=== PATIENT | female | born 1995 | race Caucasian/White ===

== ENCOUNTER 2017-11-30 16:50 | Emergency (ER) | payer OTHER ==
[~2017-11-30] VITALS: Ht 160 cm; Wt 104.3 kg
[2017-11-30 16:54] VITALS: TEMP 36.8; Ht 160 cm; Wt 104.3 kg
[2017-11-30] MEDS ORDERED: SODIUM CHLORIDE 0.9% 1000ML 1,000 ML IV STA (17:10)
[2017-11-30 17:54] LABS: BASO % 0.4 %; BASO ABS # 0.04 K/uL (0-0.2); EOS % 1.3 %; EOS ABS # 0.13 K/uL (0-0.5); HEMATOCRIT 41.7 % (37-47); HEMOGLOBIN 14.1 g/dL (12.0-16.0); IG# 0.01 K/uL (0.00-0.02); LYMPH ABS # 2.14 K/uL (1.2-3.4); MEAN CELL VOLUME 83.9 fL (80-100); MEAN CORPUSCULAR HEMOGLOBIN 28.4 pg (25-34); MEAN CORPUSCULAR HGB CONC 33.8 g/dl (32-36); MEAN PLATELET VOLUME 8.7 fL (7.4-10.4); MONO % 6.9 %; MONO ABS # 0.67 K/uL (0.11-0.59); NEUT % 69.3 %; NEUT ABS # 6.73 K/uL (1.4-6.5); PLATELET COUNT 279 K/uL (130-400); RED CELL DISTRIBUTION WIDTH CV 12.9 % (11.5-14.5); RED CELL DISTRIBUTION WIDTH SD 38.8 fL (36.4-46.3); WHITE BLOOD COUNT 9.72 K/uL (4.8-10.8)
[2017-11-30 18:03] LABS: ALBUMIN 4.2 gm/dl (3.4-5.0); ALKALINE PHOSPHATASE 94 U/L (45-117); ALT/SGPT 34 U/L (12-78); AST/SGOT 20 U/L (15-37); BLOOD UREA NITROGEN 11 mg/dl (7-18); CALCIUM 8.9 mg/dl (8.5-10.1); CARBON DIOXIDE 28 mmol/L (21-32); CREATININE 0.73 mg/dl (0.60-1.20); GLUCOSE 99 mg/dl (70-99); LIPASE 111 U/L (73-393); POTASSIUM 3.9 mmol/L (3.5-5.1); SODIUM 139 mmol/L (136-145); TOTAL PROTEIN 8.1 gm/dl (6.4-8.2)
--- NOTE | 2017-11-30 18:57 | DIAGNOSTIC IMAGING REPORT ---
PELVIC ULTRASOUND, TRANSABDOMINAL AND TRANSVAGINAL HISTORY: pelvic bleeding COMPARISON: None. FINDINGS: Uterus: 7.9 x 5.2 x 4.1 cm. No uterine masses. Endometrial stripe: Difficult to define but appears to measure up to 8 mm. Right ovary: Normal in size and demonstrates normal color flow. There are few follicles/cysts. Left ovary: Normal in size and demonstrates normal color flow. There are few follicles/cysts. Dominant cyst measures 2.2 cm. Miscellaneous:No pelvic free fluid. IMPRESSION: No significant abnormality identified within the pelvis. Electronically signed by: Francesco Pedraza M.D. 11/30/2017 6:56 PM Dictated Date/Time: 11/30/2017 6:54 PM
[2017-11-30 19:21] VITALS: BP 126/81; PULSE 83; O2SAT 99
[2017-11-30] MEDS ORDERED: AYG/5 PO (19:43)
[2017-11-30] MEDS ORDERED: NORETHINDRONE ACETATE 5 MG TAB PO SCH (19:45)
--- NOTE | 2017-11-30 22:33 | EMERGENCY ROOM VISIT NOTE ---
History Report prepared by Jayashreeiblanre: Yuli Keenan Under the Supervision of: Eligio MaldonadoO. First contact with patient: 17:04 Chief Complaint: VAGINAL BLEEDING Stated Complaint: ACHING, PERIOD FOR 3 MONTHS History of Present Illness The patient is a 21 year old female who presents to the Emergency Room with complaints of persistent vaginal bleeding for the past 3 weeks. She states some days are more like "spotting" and some days are very heavy like a normal menstrual period. Today the patient has gone through 4 tampons so far. Yesterday , she went through 8 tampons. 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 She is not sexually active and denies any chronic medical problems. She denies any recent injuries or trauma. She states she experienced similar bleeding in the past, and the doctor she saw prescribed Progesterone, which provided temporary relief. She denies any recent dizziness or lightheadedness, headache, change in vision, fevers, chest pain, shortness of breath, nausea, vomiting, diarrhea, pain with urination, and melena. She has experienced some back pain, but states this is normal for her menstrual period. 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 A total of 10 systems reviewed and were otherwise negative. Past Medical & Surgical Medical Problems: (1) No significant past medical history Social History Smoking Status: Never Smoker Alcohol Use: none Drug Use: none Marital Status: single Housing Status: lives with friends Occupation Status: employed Current/Historical Medications Scheduled Norethindrone Acetate (Aygestin), 1 TAB PO QID Allergies Coded Allergies: No Known Allergies (Unverified , 11/30/17) Physical Exam Vital Signs Date Time Temp Pulse Resp B/P (MAP) Pulse Ox O2 Delivery O2 Flow Rate FiO2 11/30/17 19:21 83 16 126/81 99 Room Air 11/30/17 16:54 36.8 94 20 136/76 99 Room Air Physical Exam GENERAL: Sitting up in bed, alert, well appearing, well nourished, no distress, non-toxic EYE EXAM: normal conjunctiva. OROPHARYNX: no exudate, no erythema, lips, buccal mucosa, and tongue normal and mucous membranes are moist NECK: supple, no nuchal rigidity, no adenopathy, non-tender LUNGS: Clear to auscultation. Normal chest wall mechanics HEART: no murmurs, S1 normal and S2 normal ABDOMEN: abdomen soft, non-tender, normo-active bowel sounds, no masses, no rebound or guarding. BACK: Back is symmetrical on inspection and there is no deformity, no midline tenderness, no CVA tenderness. SKIN: no rashes and no bruising UPPER EXTREMITIES: upper extremities are grossly normal. LOWER EXTREMITIES: No pitting edema. : declined NEURO EXAM: Normal sensorium, cranial nerves II-XII grossly intact, normal speech, no gross weakness of arms, no gross weakness of legs. Gross sensation intact. Medical Decision & Procedures ER Provider Diagnostic Interpretation: Radiology results as stated below per my review and the radiologist's interpretation: PELVIC ULTRASOUND, TRANSABDOMINAL AND TRANSVAGINAL HISTORY: pelvic bleeding COMPARISON: None. FINDINGS: Uterus: 7.9 x 5.2 x 4.1 cm. No uterine masses. Endometrial stripe: Difficult to define but appears to measure up to 8 mm. Right ovary: Normal in size and demonstrates normal color flow. There are few follicles/cysts. Left ovary: Normal in size and demonstrates normal color flow. There are few follicles/cysts. Dominant cyst measures 2.2 cm. Miscellaneous:No pelvic free fluid. IMPRESSION: No significant abnormality identified within the pelvis. Electronically signed by: Francesco Pedraza M.D. 11/30/2017 6:56 PM Laboratory Results 11/30/17 17:28 Red Blood Count 4.97, Mean Corpuscular Volume 83.9, Mean Corpuscular Hemoglobin 28.4, Mean Corpuscular Hemoglobin Concent 33.8, Mean Platelet Volume 8.7, Neutrophils (%) (Auto) 69.3, Lymphocytes (%) (Auto) 22.0, Monocytes (%) (Auto) 6.9, Eosinophils (%) (Auto) 1.3, Basophils (%) (Auto) 0.4, Neutrophils # (Auto) 6.73, Lymphocytes # (Auto) 2.14, Monocytes # (Auto) 0.67, Eosinophils # (Auto) 0.13, Basophils # (Auto) 0.04 11/30/17 17:28 Test 11/30/17 17:28 11/30/17 17:45 White Blood Count 9.72 K/uL (4.8-10.8) Red Blood Count 4.97 M/uL (4.2-5.4) Hemoglobin 14.1 g/dL (12.0-16.0) Hematocrit 41.7 % (37-47) Mean Corpuscular Volume 83.9 fL (80-100) Mean Corpuscular Hemoglobin 28.4 pg (25-34) Mean Corpuscular Hemoglobin Concent 33.8 g/dl (32-36) Platelet Count 279 K/uL (130-400) Mean Platelet Volume 8.7 fL (7.4-10.4) Neutrophils (%) (Auto) 69.3 % Lymphocytes (%) (Auto) 22.0 % Monocytes (%) (Auto) 6.9 % Eosinophils (%) (Auto) 1.3 % Basophils (%) (Auto) 0.4 % Neutrophils # (Auto) 6.73 K/uL (1.4-6.5) Lymphocytes # (Auto) 2.14 K/uL (1.2-3.4) Monocytes # (Auto) 0.67 K/uL (0.11-0.59) Eosinophils # (Auto) 0.13 K/uL (0-0.5) Basophils # (Auto) 0.04 K/uL (0-0.2) RDW Standard Deviation 38.8 fL (36.4-46.3) RDW Coefficient of Variation 12.9 % (11.5-14.5) Immature Granulocyte % (Auto) 0.1 % Immature Granulocyte # (Auto) 0.01 K/uL (0.00-0.02) Anion Gap 5.0 mmol/L (3-11) Est Creatinine Clear Calc Drug Dose 142.0 ml/min Estimated GFR () 137.4 Estimated GFR (Non- 118.6 BUN/Creatinine Ratio 14.6 (10-20) Calcium Level 8.9 mg/dl (8.5-10.1) Total Bilirubin 0.2 mg/dl (0.2-1) Direct Bilirubin < 0.1 mg/dl (0-0.2) Aspartate Amino Transf (AST/SGOT) 20 U/L (15-37) Alanine Aminotransferase (ALT/SGPT) 34 U/L (12-78) Alkaline Phosphatase 94 U/L (45-117) Total Protein 8.1 gm/dl (6.4-8.2) Albumin 4.2 gm/dl (3.4-5.0) Lipase 111 U/L (73-393) Urine Color YELLOW Urine Appearance CLEAR (CLEAR) Urine pH 7.0 (4.5-7.5) Urine Specific Snook 1.024 (1.000-1.030) Urine Protein NEG (NEG) Urine Glucose (UA) NEG (NEG) Urine Ketones NEG (NEG) Urine Occult Blood 2+ (NEG) Urine Nitrite NEG (NEG) Urine Bilirubin NEG (NEG) Urine Urobilinogen NEG (NEG) Urine Leukocyte Esterase NEG (NEG) Urine WBC (Auto) 1-5 /hpf (0-5) Urine RBC (Auto) 10-30 /hpf (0-4) Urine Hyaline Casts (Auto) 1-5 /lpf (0-5) Urine Epithelial Cells (Auto) >30 /lpf (0-5) Urine Bacteria (Auto) NEG (NEG) Urine Test NEG (NEG) Laboratory results per my review. Medications Administered Medications (Trade) Dose Ordered Sig/Eladio Route Start Time Stop Time Status Last Admin Dose Admin Sodium Chloride 1,000 ml @ 999 mls/hr Q1H1M STAT IV 11/30/17 17:10 11/30/17 18:10 DC 11/30/17 17:10 999 MLS/HR ED Course ED COURSE: Vital signs were reviewed and showed normal vital signs The patients medical record was reviewed The above diagnostic studies were performed and reviewed. ED treatments and interventions as stated above. 5: The patient was evaluated in room B12. A complete history and physical examination was performed. 0: NSS 1000 ml @ 999 mls/hr IV. 0: I offered the patient a pelvic exam, but she declines. 1920: I discussed the patients case with Eliel Mensah PSYCHOLOGY TEACHER. He recommends she follow up as an outpatient. 1944: Upon reevaluation, the patient is feeling well and is ready to go home. I discussed my findings with the patient and she understands and agrees with the treatment plan. 1944: Aygestin 5 mg PO. Based on the patients age, coexisting illnesses, exam and lab findings the decision to treat as an outpatient was made. The patient remained stable while under my care. The patient appeared well at the time of discharge. Medical Decision Differential diagnosis includes etiologies such as ectopic , dysfunction uterine bleeding, bleeding dyscrasia, trauma, infection, as well as others were entertained. Patient is a 21-year-old female that presents the ER for vaginal bleeding. She notes this is been present for the past 3 weeks. Over the past 3 days it has increased. She is to total of 8 pads per day. Today it has improved significantly. She has no other complaints. No chest pain shortness of breath. No dizziness or lightheadedness. CBC along with BMP, LFTs, bilirubin lipase is unremarkable. No abdominal pain. UA was negative. was negative. Patient declined pelvic exam. Ultrasound of pelvis was unremarkable. Patient was updated at bedside. Vitals are stable. Discussed with PSYCHOLOGY TEACHER. They recommended Aygestin. Patient was agreeable. Patient will follow up as an outpatient with PSYCHOLOGY TEACHER for dysfunctional vaginal bleeding. Discussed with Pt concerning signs and symptoms to watch out for. Pt was instructed to follow up with their PCP and discussed with the patient their option to return to the ED at anytime for persistent or worsening symptoms. The appropriate anticipatory guidance and out-patient management, including indications for return to the emergency department, were explained at length to the patient and understood. Medication Reconcilliation Current Medication List: was personally reviewed by me Blood Pressure Screening Patient's blood pressure: Normal blood pressure Blood pressure disposition: Did not require urgent referral Consults Time Called: 1912 Consulting Physician: lEiel Mensah PSYCHOLOGY TEACHER Returned Call: 1920 I discussed the patients case with Eliel Mensah PSYCHOLOGY TEACHER. He recommends she follow up as an outpatient. Impression Primary Impression: Abnormal vaginal bleeding Scribe Attestation The scribe's documentation has been prepared under my direction and personally reviewed by me in its entirety. I confirm that the note above accurately reflects all work, treatment, procedures, and medical decision making performed by me. Departure Information Dispostion Home / Self-Care Prescriptions Norethindrone Acetate (AYGESTIN) 5 Mg Tab 1 TAB PO QID for 5 Days, #20 TAB Prov: Alon Felton, DO 11/30/17 Referrals No Doctor, Assigned (PCP) Patient Instructions ED Bleed Irregular Vaginal, My [email or web address] Additional Instructions Please follow up with your primary care doctor with in the next 24 hours. Any worsening of your symptoms, please return to the ED immediately. This includes any fevers greater than 100.4, worsening pain, chest pain, shortness breath, persistent nausea, vomiting, unable to eat or drink, dizziness, lightheadedness , or going through more than 1 pad an hour, or any other concerning signs or symptoms from your standpoint. You were given medications during this visit that will inhibit your ability to drive, operate machinery and work. Please do NOT drive, operate machinery, drink alcohol or work for the next 12hrs. Please take the aygestin as prescribed. You were found to have a blood pressure greater than 120 systolic over 90 diastolic. Due to the new Medicare guidelines, we are now recommending that you follow up with your primary care doctor in regards to this elevated blood pressure.
== END 2017-11-30 19:50 | disposition home or self-care (01) ==
LOC: C.EDB 16:52
DX: N93.8 Other specified abnormal uterine and vaginal bleeding (principal)